=== PATIENT | female | born 1955 | race Hispanic/Latino ===

== ENCOUNTER 2024-04-22 06:19 | Observation (INO) | payer OTHER, MEDICARE ==
[2024-04-20 11:36] LABS: BASOPHILS # (AUTO) 0.03 K/uL (0.00-0.20); BASOPHILS % (AUTO) 0.6 % (0.0-5.0); EOSINOPHILS # (AUTO) 0.28 K/uL (0.00-0.70); EOSINOPHILS % (AUTO) 5.5 % (0.0-8.0); LYMPHOCYTES # (AUTO) 1.4 K/uL (1.0-4.8); LYMPHOCYTES % (AUTO) 27.8 % (21.0-51.0); MEAN CORPUSCULAR HEMOGLOBIN 31.1 pg (27.0-33.0); MEAN CORPUSCULAR HGB CONC 31.9 g/dL (32.0-36.0); MEAN CORPUSCULAR VOLUME 97.6 fL (79-99); MONOCYTES # (AUTO) 0.4 K/uL (0.1-1.0); MONOCYTES % (AUTO) 8.7 % (3.0-13.0); NEUTROPHILS # (AUTO) 2.9 K/uL (1.8-7.7); NEUTROPHILS % (AUTO) 57.4 % (40.0-77.0); PLATELET COUNT (AUTO) 225 K/uL (130-400); RED BLOOD CELL COUNT(AUTO) 3.79 MIL/uL (4.00-5.50); RED CELL DISTRIBUTION WIDTH 13.9 % (11.0-15.5); WHITE BLOOD COUNT (AUTO) 5.1 K/uL (4.8-10.8)
[2024-04-20 11:43] LABS: CREATININE 1.4 mg/dL (0.5-1.0); POTASSIUM 4.4 mmol/L (3.5-5.1)
[2024-04-20 12:05] VITALS: BP 127/73; PULSE 55; RESP 16
[2024-04-22] VITALS (26 sets, daily range): BP systolic 115–141; BP diastolic 54–79; PULSE 56–95; RESP 15–18; O2SAT 97
[~2024-04-22] VITALS: Ht 157.5 cm; Wt 75.5 kg
[~2024-04-22 06:19] MED LIST: ABAL1.56 SQ; ATOR10 PO; CLON0.5T4 PO; ESCI-8 PO; FAMO40TA7 PO; FOLI1 PO; IRBE300T26 PO; LEFL10TA19 PO
[2024-04-22] MEDS: LACTATED RINGERS 1000ML 1,000 ML IV ONE (07:52)
[2024-04-22] MEDS: CLINDAMYCIN IVPB 900MG/50ML 50 ML IV ONE (07:52)
[2024-04-22] MEDS ORDERED: LIDOCAINE PF 100MG/5ML (2%) SYRINGE 5ML ONE (10:36)
[2024-04-22] MEDS ORDERED: PROPOFOL 10 MG/ML 20ML VIAL IV ONE (10:37)
[2024-04-22] MEDS ORDERED: ROCURONIUM BROMIDE 10MG/1ML 5ML VL ONE (10:37)
[2024-04-22] MEDS ORDERED: MIDAZOLAM HCL 1 MG/ML 2ML VIAL ONE (10:37)
[2024-04-22] MEDS ORDERED: FENTANYL CITRATE PF 50 MCG/1 ML 2ML VIAL ONE (10:37)
[2024-04-22] MEDS: CLINDAMYCIN 900MG/6ML INJ IV ONE (10:44)
[2024-04-22] MEDS ORDERED: EPHEDRINE SULFATE 50 MG/ML AMPULE ONE (11:02)
[2024-04-22] MEDS ORDERED: GLYCOPYRROLATE 0.2 MG/ML 5 ML VIAL ONE (11:12)
[2024-04-22] MEDS ORDERED: ONDANSETRON 4MG INJ ONE (11:12)
[2024-04-22] MEDS ORDERED: DEXAMETHASONE SOD PHOSPHATE 4 MG/ML 1ML VIAL ONE (11:13)
[2024-04-22] MEDS ORDERED: NEOSTIGMINE METHYLSULFATE 1MG/ML IV ONE (11:13)
[2024-04-22] MEDS: BUPIVACAINE/PF 0.5% 30ML VIAL ONE (11:15)
[2024-04-22] MEDS ORDERED: FENTANYL CITRATE PF 50 MCG/1 ML 5ML AMP IV ONE (12:15)
[2024-04-22] MEDS ORDERED: CLONAZEPAM 0.5 MG TABLET PO PRN (14:00)
[2024-04-22] MEDS ORDERED: ACETAMINOPHEN 325 MG TAB PO PRN (14:00)
[2024-04-22] MEDS ORDERED: ONDANSETRON 4MG INJ IVP PRN (14:00)
[2024-04-22] MEDS ORDERED: HYDROMORPHONE 0.5 MG SYG (0.5MG/0.5ML) IVP PRN (14:00)
[2024-04-22] MEDS: ONDANSETRON 4MG INJ ONE (14:02)
[2024-04-22] MEDS: MEPERIDINE-PF 25 MG/ML SYG ONE (14:03)
[2024-04-22] MEDS: ACETAMINOPHEN 1,000 MG/100 ML VIAL IV ONE (15:25)
[2024-04-22] MEDS: FAMOTIDINE 20MG VIAL IV SCH (21:51)
[2024-04-22] MEDS: LACTATED RINGERS 1000ML 1,000 ML IV SCH (21:51)
[2024-04-22] MEDS: HYDROCODONE/ACETAMINOPHEN 5/325 MG TAB PO PRN (21:58)
[2024-04-23 00:21] VITALS: BP 140/70; PULSE 65; RESP 18
[2024-04-23 05:18] VITALS: BP 143/73; PULSE 83; RESP 18
[2024-04-23] MEDS: KETOROLAC 15MG/ML VIAL (15MG/ML) IV PRN (05:40)
[2024-04-23 08:00] VITALS: BP 132/66; PULSE 60; RESP 16; O2SAT 98
[2024-04-23] MEDS: LOSARTAN 100 MG TABLET PO SCH (08:20)
[2024-04-23] MEDS: CITALOPRAM 20 MG TABLET PO SCH (08:20)
[2024-04-23] MEDS: ENOXAPARIN SODIUM 30 MG/0.3 ML SQ SCH (08:21)
[2024-04-23 12:00] VITALS: BP 142/65; PULSE 59; RESP 16
== END 2024-04-23 17:35 | disposition home or self-care (01) ==
LOC: DAH 06:19 → DAHIP 06:20 → DAH 06:20 → 3DH 17:30
PROVIDERS: ADMIT Surgery; ATTEND Surgery
DX: K44.9 Diaphragmatic hernia without obstruction or gangrene (principal); K21.00 Gastro-esophageal reflux disease with esophagitis, without bleeding; E78.5 Hyperlipidemia, unspecified; D50.9 Iron deficiency anemia, unspecified; I10 Essential (primary) hypertension; E78.00 Pure hypercholesterolemia, unspecified; F41.9 Anxiety disorder, unspecified; F32.A Depression, unspecified; M19.90 Unspecified osteoarthritis, unspecified site; Z88.0 Allergy status to penicillin; Z79.899 Other long term (current) drug therapy
CPT/HCPCS: 80048; 85025; 86850; 86900; 86901; 36415; 93005; 96374; 43282; 96376; 96372; 96375; 97161; 97116; J1100; G0378 ×23; A4600; A6260; A4663; A4215 ×3; J7120; J3490 ×5; J3010 ×2; J2001; J2250; J2704; J2405 ×2; J2710; J0665; J2175; G0168; A4930 ×3; C1781; A4223; A4222; A4221; J1650; J1885 ×2; 43235; G8980-CI; G8983-CH